=== PATIENT | female | born 1995 | race Hispanic/Latino ===

== ENCOUNTER 2019-07-15 12:15 | Emergency (ER) | payer MEDICAID ==
[2019-07-15 13:55] LABS: RAPID GROUP A STREP NEGATIVE (NEGATIVE)
== END 2019-07-15 14:58 | disposition home or self-care (01) ==
LOC: EDH 12:15 → EEVIPCON 12:15 → EDH 14:58
DX: O98.512 Other viral diseases complicating pregnancy, second trimester (principal); B34.9 Viral infection, unspecified; Z3A.17 17 weeks gestation of pregnancy; Z20.828 Contact with and (suspected) exposure to other viral communicable diseases
CPT/HCPCS: 36415; 87804 ×2; 87880; 99283; U0003

== ENCOUNTER 2019-09-26 01:26 | Observation (INO) | payer MEDICAID ==
[~2019-09-26] VITALS: Ht 152.4 cm; Wt 74.4 kg
[2019-09-26] MEDS ORDERED: LACTATED RINGERS 1000ML 1,000 ML IV SCH ×2 (01:45→03:15)
[2019-09-26 01:56] LABS: APPEARANCE,URINE Cloudy (CLEAR); BILIRUBIN,URINE Small (NEGATIVE); COLOR,URINE Dark Yellow (YELLOW); GLUCOSE, URINE (UA) Negative (NEGATIVE); KETONES,URINE 40 mg/dL (NEGATIVE); LEUKOCYTE ESTERASE ,URINE Small (NEGATIVE); NITRATE,URINE Negative (NEGATIVE); OCCULT BLOOD,URINE Negative (NEGATIVE); PROTEIN,URINE Trace mg/dL (NEGATIVE)
[2019-09-26 02:04] LABS: AMPHET/METH SCREEN,URINE NEGATIVE (NEGATIVE); BARBITURATE SCREEN, URINE NEGATIVE (NEGATIVE); BENZODIAZEPINES SCREEN,URINE NEGATIVE (NEGATIVE); CANNABINOID SCREEN,URINE POSITIVE (NEGATIVE); COCAINE SCREEN,URINE NEGATIVE (NEGATIVE); OPIATE SCREEN,URINE NEGATIVE (NEGATIVE); PHENCYCLIDINE SCREEN,URINE NEGATIVE (NEGATIVE)
[2019-09-26 02:14] LABS: BACTERIA,URINE Few /HPF (None Seen); RBC,URINE None Seen /HPF (0-1)
[2019-09-26 02:15] LABS: MUCUS,URINE Few LPF (None Seen); SQUAMOUS EPITHELIAL CELL,UR Moderate /HPF (0-2)
[2019-09-26] MEDS ORDERED: BUTORPHANOL TARTRATE 2 MG/ML IVP PRN (03:15)
[2019-09-26] MEDS ORDERED: PROMETHAZINE HCL 25 MG/ML 1ML AMPULE IM SCH (03:15)
[2019-09-26] MEDS: TERBUTALINE SULFATE VIAL 1MG/ML SQ SCH ×2 (04:09→05:00)
[2019-09-26 05:32] VITALS: BP 129/65
== END 2019-09-26 08:40 | disposition home or self-care (01) ==
LOC: EDH 01:26 → LDH 01:27
PROVIDERS: ADMIT Obstetrics & Gynecology; ATTEND Obstetrics & Gynecology
DX: O21.8 Other vomiting complicating pregnancy (principal); R10.9 Unspecified abdominal pain; M54.5 Low back pain; Z20.828 Contact with and (suspected) exposure to other viral communicable diseases; Z3A.29 29 weeks gestation of pregnancy
CPT/HCPCS: 80305; 81001; 87426; 96360; 96361; 96372 ×2; 99284; G0378 ×7; J2550; J3105; J7120; U0003

== ENCOUNTER 2021-06-01 00:40 | Emergency (ER) | payer OTHER, MEDICAID ==
[~2021-06-01] VITALS: Ht 152.4 cm; Wt 77.1 kg
[2021-06-01 00:41] VITALS: BP 127/74
== END 2021-06-01 01:54 | disposition home or self-care (01) ==
LOC: EDH 00:40
DX: O9A.211 Injury, poisoning and certain other consequences of external causes complicating pregnancy, first trimester (principal); S09.93XA Unspecified injury of face, initial encounter; M79.10 Myalgia, unspecified site; Y04.2XXA Assault by strike against or bumped into by another person, initial encounter; Y93.89 Activity, other specified; Y92.89 Other specified places as the place of occurrence of the external cause; Y99.8 Other external cause status

== ENCOUNTER 2021-06-30 23:30 | Emergency (ER) | payer OTHER, MEDICAID ==
[~2021-06-30] VITALS: Ht 152.4 cm; Wt 76.2 kg
[2021-07-01 00:52] VITALS: BP 110/59
[2021-07-01] MEDS ORDERED: HYDR25CA PO (00:53)
== END 2021-07-01 01:13 | disposition home or self-care (01) ==
LOC: EDH 23:30
DX: O99.342 Other mental disorders complicating pregnancy, second trimester (principal); F43.0 Acute stress reaction; F31.9 Bipolar disorder, unspecified; F41.9 Anxiety disorder, unspecified; Z3A.18 18 weeks gestation of pregnancy

== ENCOUNTER 2021-07-14 05:46 | Observation (INO) | payer OTHER, MEDICAID ==
[~2021-07-14] VITALS: Ht 152.4 cm; Wt 78.9 kg
[~2021-07-14 05:46] MED LIST: HYDR25CA PO
[2021-07-14 05:54] VITALS: BP 131/62
[2021-07-14] MEDS ORDERED: ACET-66 PO (06:24)
[2021-07-14] MEDS ORDERED: PREN-196 PO (06:24)
[2021-07-14 06:29] LABS: APPEARANCE,URINE Clear (CLEAR); BILIRUBIN,URINE Negative (NEGATIVE); COLOR,URINE Yellow (YELLOW); GLUCOSE, URINE (UA) Negative (NEGATIVE); KETONES,URINE Negative (NEGATIVE); LEUKOCYTE ESTERASE ,URINE Small (NEGATIVE); NITRATE,URINE Negative (NEGATIVE); OCCULT BLOOD,URINE Negative (NEGATIVE); PROTEIN,URINE Trace mg/dL (NEGATIVE)
[2021-07-14 06:49] LABS: BACTERIA,URINE Few /HPF (None Seen); RBC,URINE 0-1 /HPF (0-1)
[2021-07-14 07:17] LABS: AMPHET/METH SCREEN,URINE NEGATIVE (NEGATIVE); BARBITURATE SCREEN, URINE NEGATIVE (NEGATIVE); BENZODIAZEPINES SCREEN,URINE NEGATIVE (NEGATIVE); CANNABINOID SCREEN,URINE POSITIVE (NEGATIVE); COCAINE SCREEN,URINE NEGATIVE (NEGATIVE); OPIATE SCREEN,URINE NEGATIVE (NEGATIVE); PHENCYCLIDINE SCREEN,URINE NEGATIVE (NEGATIVE)
[2021-07-14] MEDS ORDERED: ACETAMINOPHEN 325 MG TAB PO ONE (08:30)
[2021-07-14] MEDS ORDERED: PANTOPRAZOLE 40 MG TAB DR PO SCH (09:30)
== END 2021-07-14 10:15 ==
LOC: EDH 05:46 → LDH 05:47
PROVIDERS: ADMIT Obstetrics & Gynecology; ATTEND Obstetrics & Gynecology
DX: O26.892 Other specified pregnancy related conditions, second trimester (principal); R10.13 Epigastric pain; R10.10 Upper abdominal pain, unspecified; O21.9 Vomiting of pregnancy, unspecified; O99.342 Other mental disorders complicating pregnancy, second trimester; F32.A Depression, unspecified; Z3A.20 20 weeks gestation of pregnancy
CPT/HCPCS: 76705; 80305; 81001; G0378 ×4; G0379

== ENCOUNTER 2021-08-01 02:01 | Observation (INO) | payer MEDICAID, OTHER ==
[~2021-08-01] VITALS: Ht 152.4 cm; Wt 76.7 kg
[~2021-08-01 02:01] MED LIST changes: +ACET-66 PO; +PREN-196 PO
[2021-08-01 02:43] LABS: APPEARANCE,URINE CLEAR (CLEAR); BILIRUBIN,URINE NEGATIVE (NEGATIVE); COLOR,URINE YELLOW (YELLOW); GLUCOSE, URINE (UA) NEGATIVE (NEGATIVE); KETONES,URINE NEGATIVE (NEGATIVE); LEUKOCYTE ESTERASE ,URINE NEGATIVE (NEGATIVE); NITRATE,URINE NEGATIVE (NEGATIVE); OCCULT BLOOD,URINE NEGATIVE (NEGATIVE); PROTEIN,URINE NEGATIVE (NEGATIVE)
[2021-08-01 02:50] VITALS: BP 113/65
[2021-08-01 02:51] LABS: AMPHET/METH SCREEN,URINE NEGATIVE (NEGATIVE); BARBITURATE SCREEN, URINE NEGATIVE (NEGATIVE); BENZODIAZEPINES SCREEN,URINE NEGATIVE (NEGATIVE); CANNABINOID SCREEN,URINE NEGATIVE (NEGATIVE); COCAINE SCREEN,URINE NEGATIVE (NEGATIVE); OPIATE SCREEN,URINE NEGATIVE (NEGATIVE); PHENCYCLIDINE SCREEN,URINE NEGATIVE (NEGATIVE)
[2021-08-01] MEDS ORDERED: PREN1TAB80 PO (02:54)
[2021-08-01] MEDS ORDERED: HYDR25CA PO (02:54)
[2021-08-01] MEDS ORDERED: TYLENOL PO (02:56)
[2021-08-01] MEDS ORDERED: ONDANSETRON 4MG INJ IVP PRN (03:30)
[2021-08-01] MEDS ORDERED: MORPHINE 10 MG SYG IVP ONE (03:30)
[2021-08-01] MEDS ORDERED: ONDANSETRON 4MG INJ ONE (03:30)
[2021-08-01] MEDS ORDERED: LACTATED RINGERS 1000ML 1,000 ML IV SCH (04:00)
[2021-08-01] MEDS ORDERED: MORPHINE 2 MG SYG IVP PRN (04:00)
== END 2021-08-01 08:00 ==
LOC: EDH 02:01 → LDH 02:02
PROVIDERS: ADMIT Obstetrics & Gynecology; ATTEND Obstetrics & Gynecology
DX: O26.892 Other specified pregnancy related conditions, second trimester (principal); R10.13 Epigastric pain; R11.0 Nausea; O99.612 Diseases of the digestive system complicating pregnancy, second trimester; K80.20 Calculus of gallbladder without cholecystitis without obstruction; Z3A.25 25 weeks gestation of pregnancy; Z79.899 Other long term (current) drug therapy
CPT/HCPCS: 59025; 80305; 81003; 96361; 96374; 96375; G0378 ×6; J2405; 96360

== ENCOUNTER 2021-08-04 19:46 | Observation (INO) | payer OTHER ==
[~2021-08-04] VITALS: Ht 152.4 cm; Wt 74.8 kg
[2021-08-04 19:49] VITALS: BP 111/67
[2021-08-04 21:25] LABS: AMPHET/METH SCREEN,URINE NEGATIVE (NEGATIVE); BARBITURATE SCREEN, URINE NEGATIVE (NEGATIVE); BENZODIAZEPINES SCREEN,URINE NEGATIVE (NEGATIVE); CANNABINOID SCREEN,URINE NEGATIVE (NEGATIVE); COCAINE SCREEN,URINE NEGATIVE (NEGATIVE); OPIATE SCREEN,URINE NEGATIVE (NEGATIVE); PHENCYCLIDINE SCREEN,URINE NEGATIVE (NEGATIVE)
[2021-08-04] MEDS ORDERED: ACETAMINOPHEN 325 MG TAB PO ONE (21:30)
[2021-08-04] MEDS ORDERED: LACTATED RINGERS 1000ML 1,000 ML IV SCH (23:30)
== END 2021-08-05 09:15 ==
LOC: EDH 19:46 → LDH 20:01
PROVIDERS: ADMIT Obstetrics & Gynecology; ATTEND Obstetrics & Gynecology
DX: O26.852 Spotting complicating pregnancy, second trimester (principal); Z20.822 Contact with and (suspected) exposure to COVID-19; O26.892 Other specified pregnancy related conditions, second trimester; R10.32 Left lower quadrant pain; O62.9 Abnormality of forces of labor, unspecified; Z3A.24 24 weeks gestation of pregnancy; Z79.899 Other long term (current) drug therapy
CPT/HCPCS: 59025; 76805; 80305; 87635; 96360; 96361; G0378 ×13; J7120

== ENCOUNTER 2021-08-13 21:11 | Observation (INO) | payer OTHER ==
[~2021-08-13] VITALS: Ht 152.4 cm; Wt 72.6 kg
[2021-08-13 21:12] VITALS: BP 106/59
[2021-08-13 22:13] LABS: APPEARANCE,URINE CLEAR (CLEAR); BILIRUBIN,URINE NEGATIVE (NEGATIVE); COLOR,URINE YELLOW (YELLOW); GLUCOSE, URINE (UA) NEGATIVE (NEGATIVE); KETONES,URINE NEGATIVE (NEGATIVE); LEUKOCYTE ESTERASE ,URINE NEGATIVE (NEGATIVE); NITRATE,URINE NEGATIVE (NEGATIVE); OCCULT BLOOD,URINE NEGATIVE (NEGATIVE); PROTEIN,URINE NEGATIVE (NEGATIVE); UROBILINOGEN,URINE 0.2 mg/dL (0.2-1.0)
[2021-08-13 22:20] LABS: AMPHET/METH SCREEN,URINE NEGATIVE (NEGATIVE); BARBITURATE SCREEN, URINE NEGATIVE (NEGATIVE); BENZODIAZEPINES SCREEN,URINE NEGATIVE (NEGATIVE); CANNABINOID SCREEN,URINE NEGATIVE (NEGATIVE); COCAINE SCREEN,URINE NEGATIVE (NEGATIVE); OPIATE SCREEN,URINE NEGATIVE (NEGATIVE); PHENCYCLIDINE SCREEN,URINE NEGATIVE (NEGATIVE)
[2021-08-13] MEDS: LACTATED RINGERS 1000ML 1,000 ML IV SCH (23:10)
[2021-08-14] MEDS: LACTATED RINGERS 1000ML 1,000 ML IV SCH (06:15)
== END 2021-08-14 09:00 | disposition home or self-care (01) ==
LOC: EDH 21:11 → LDH 21:12
PROVIDERS: ADMIT Obstetrics & Gynecology; ATTEND Obstetrics & Gynecology
DX: O98.512 Other viral diseases complicating pregnancy, second trimester (principal); U07.1 COVID-19; O46.92 Antepartum hemorrhage, unspecified, second trimester; O99.342 Other mental disorders complicating pregnancy, second trimester; F32.A Depression, unspecified; Z3A.24 24 weeks gestation of pregnancy
CPT/HCPCS: 80305; 81003; 87635; 96360; 96361; G0378 ×12; J7120 ×2

== ENCOUNTER 2021-09-20 01:36 | Observation (INO) | payer OTHER ==
[~2021-09-20] VITALS: Ht 152.4 cm; Wt 74.4 kg
[2021-09-20 01:39] VITALS: BP 108/70
[2021-09-20] MEDS ORDERED: LACTATED RINGERS 1000ML 1,000 ML IV PRN (02:00)
[2021-09-20] MEDS ORDERED: PREN-196 PO (02:01)
[2021-09-20 02:16] LABS: APPEARANCE,URINE CLEAR (CLEAR); BILIRUBIN,URINE NEGATIVE (NEGATIVE); COLOR,URINE YELLOW (YELLOW); GLUCOSE, URINE (UA) NEGATIVE (NEGATIVE); KETONES,URINE NEGATIVE (NEGATIVE); LEUKOCYTE ESTERASE ,URINE NEGATIVE (NEGATIVE); NITRATE,URINE NEGATIVE (NEGATIVE); OCCULT BLOOD,URINE NEGATIVE (NEGATIVE); PROTEIN,URINE NEGATIVE (NEGATIVE); UROBILINOGEN,URINE 0.2 mg/dL (0.2-1.0)
[2021-09-20 02:25] LABS: AMPHET/METH SCREEN,URINE NEGATIVE (NEGATIVE); BENZODIAZEPINES SCREEN,URINE NEGATIVE (NEGATIVE); CANNABINOID SCREEN,URINE NEGATIVE (NEGATIVE); COCAINE SCREEN,URINE NEGATIVE (NEGATIVE); PHENCYCLIDINE SCREEN,URINE NEGATIVE (NEGATIVE)
[2021-09-24 10:13] LABS: OPIATES SCREEN URINE Negative ng/mL (Cutoff=300)
== END 2021-09-20 01:55 ==
LOC: EDH 01:36 → LDH 01:37
PROVIDERS: ADMIT Obstetrics & Gynecology; ATTEND Obstetrics & Gynecology
DX: O46.92 Antepartum hemorrhage, unspecified, second trimester (principal); Z20.822 Contact with and (suspected) exposure to COVID-19; Z3A.27 27 weeks gestation of pregnancy
CPT/HCPCS: 87635; 80305; 81003; G0379; G0378